=== PATIENT | female | born 1950 | race Caucasian/White ===

== ENCOUNTER 2019-03-18 08:44 | Inpatient (IN) ==
[2019-03-18] MEDS ORDERED: 0.9 % Sodium Chloride 1,000 ML IVC ONE (08:56)
[2019-03-18] MEDS ORDERED: Ondansetron 4 MG/2 ML VIAL IVP ONE (08:56)
[2019-03-18 09:37] LABS: Albumin 3.6 g/dL (3.5-5.7); Bilirubin,Total 1.1 mg/dL (0.3-1.0); Calcium 9.2 mg/dL (8.6-10.3); Globulin 3.5 g/dL (2.4-3.5); Potassium 3.6 mEq/L (3.5-5.1); Total Protein 7.1 g/dL (6.4-8.9)
[2019-03-18 09:50] LABS: Basophils % 0.1 %; Eosinophils % 0.1 %; Hemoglobin 11.8 g/dL (11.5-15.4); Immature Granulocytes % 0.7 % (0-4); Lymphocytes # 0.2 K/mcL (0.6-4.6); Lymphocytes % 1.4 %; Mean Corpuscular HGB Conc 32.8 g/dL (31.6-35.5); Mean Corpuscular Volume 97.6 fL (83.0-100.0); Mean Platelet Volume 9.9 fL (9.4-12.4); Monocytes # 0.3 K/mcL (0.0-1.3); Monocytes % 2.8 %; Platelet Count 185 K/mcL (140-400); Red Blood Count 3.69 M/mcL (3.82-4.97); Red Cell Distribution Width 14.3 % (11.5-14.5); Segmented Neutrophils % 94.9 %; White Blood Count 11.6 K/mcL (4.3-11.1)
[2019-03-18] MEDS ORDERED: 0.9 % Sodium Chloride 1,000 ML IVC SCH ×2 (10:30→11:11)
[2019-03-18 10:40] LABS: Bilirubin,Urine Negative (Negative); Blood,Urine Negative (Negative); Clarity,Urine Clear (Clear); Color,Urine Yellow (Yellow); Glucose,Urine (UA) Normal (Normal); Ketones,Urine Negative (Negative); Leukocyte Esterase,Urine Negative (Negative); Nitrite,Urine Negative (Negative); PH,Urine 6.5 pH Units (5.0-8.0); Protein,Urine Negative (Neg-Trace); Specific Gravity,Urine 1.025 (1.010-1.025); Urobilinogen,Urine Normal (Normal)
[2019-03-18] MEDS ORDERED: Ondansetron 4 MG/2 ML VIAL IVP PRN (11:11)
[2019-03-18] MEDS ORDERED: Naloxone 0.4 MG/ML INJ IVP PRN (11:11)
[2019-03-18] MEDS ORDERED: Ondansetron ODT 4 MG TAB.RAPDIS SL PRN (11:11)
[2019-03-18] MEDS: 0.45 % Sodium Chloride w/KCl 20 MEQ/1,000 ML MLS IVC SCH (19:56)
[2019-03-18] MEDS: PRESERVISION PO SCH (20:02)
[2019-03-19] MEDS: Acetaminophen 325 MG TABLET PO PRN ×2 (02:38→18:30)
[2019-03-19 06:35] LABS: Basophils % 0.1 %; Eosinophils # 0.1 K/mcL (0.0-0.6); Eosinophils % 0.9 %; Hematocrit 32.1 % (35.3-44.9); Hemoglobin 10.4 g/dL (11.5-15.4); Immature Granulocytes % 0.4 % (0-4); Lymphocytes # 0.5 K/mcL (0.6-4.6); Lymphocytes % 6.5 %; Mean Corpuscular HGB Conc 32.4 g/dL (31.6-35.5); Mean Corpuscular Hemoglobin 31.9 pg (28.0-33.3); Mean Corpuscular Volume 98.5 fL (83.0-100.0); Mean Platelet Volume 10.5 fL (9.4-12.4); Monocytes # 0.3 K/mcL (0.0-1.3); Monocytes % 4.1 %; Neutrophils # 6.6 K/mcL (1.6-8.9); Platelet Count 161 K/mcL (140-400); Red Blood Count 3.26 M/mcL (3.82-4.97); Red Cell Distribution Width 14.6 % (11.5-14.5); White Blood Count 7.5 K/mcL (4.3-11.1)
[2019-03-19 07:00] LABS: Bilirubin,Total 2.5 mg/dL (0.3-1.0); Calcium 8.2 mg/dL (8.6-10.3); Magnesium 1.7 mg/dL (1.6-2.6); Phosphorous 2.5 mg/dL (2.7-4.5); Potassium 3.7 mEq/L (3.5-5.1)
[2019-03-19] MEDS: 0.45 % Sodium Chloride w/KCl 20 MEQ/1,000 ML MLS IVC SCH ×3 (08:25→19:46)
[2019-03-19] MEDS: Letrozole 2.5 MG TABLET PO SCH (08:25)
[2019-03-19] MEDS: PRESERVISION PO SCH ×2 (08:25→19:47)
[2019-03-19 09:19] LABS: Estimated Average Glucose 137 mg/dl
[2019-03-19 18:23] LABS: Hepatitis B Surface Antigen Nonreactive (Nonreactive)
[2019-03-19 18:53] LABS: Hepatitis A Antibody IgM Nonreactive (Nonreactive); Hepatitis B Core IgM Nonreactive (Nonreactive)
[2019-03-19 18:54] LABS: Hepatitis C Virus Antibody Nonreactive (Nonreactive)
[2019-03-20] MEDS ORDERED: *HR* Enoxaparin 40 MG/0.4 ML SYRINGE SQ SCH (06:00)
[2019-03-20 07:07] LABS: Basophils % 0.4 %; Eosinophils # 0.4 K/mcL (0.0-0.6); Eosinophils % 8.2 %; Hematocrit 33.6 % (35.3-44.9); Hemoglobin 10.6 g/dL (11.5-15.4); Immature Granulocytes % 0.6 % (0-4); Lymphocytes # 0.7 K/mcL (0.6-4.6); Lymphocytes % 14.1 %; Mean Corpuscular HGB Conc 31.5 g/dL (31.6-35.5); Mean Corpuscular Hemoglobin 31.5 pg (28.0-33.3); Mean Platelet Volume 10.8 fL (9.4-12.4); Monocytes # 0.4 K/mcL (0.0-1.3); Monocytes % 8.6 %; Neutrophils # 3.3 K/mcL (1.6-8.9); Platelet Count 159 K/mcL (140-400); Red Blood Count 3.36 M/mcL (3.82-4.97); Red Cell Distribution Width 14.7 % (11.5-14.5); Segmented Neutrophils % 68.1 %; White Blood Count 4.9 K/mcL (4.3-11.1)
[2019-03-20 07:34] LABS: Alanine Aminotransferase 158 Units/L (7-52); Alkaline Phosphatase 154 Units/L (34-104); Aspartate Amino Transferase 159 Units/L (13-39); BUN/Creatinine Ratio 10 (6-26); Bilirubin,Total 2.5 mg/dL (0.3-1.0); Blood Urea Nitrogen 9 mg/dL (8-23); Calcium 8.3 mg/dL (8.6-10.3); Carbon Dioxide 25 mEq/L (23-29); Chloride 108 mEq/L (98-107); Globulin 3.1 g/dL (2.4-3.5); Glucose 110 mg/dL (70-105); Osmolality,Calculated 287 (280-300); Sodium 139 mEq/L (136-145); Total Protein 6.1 g/dL (6.4-8.9); eGFR For African Americans > 60 (> 60); eGFR For Non-African Americans > 60 (> 60)
[2019-03-20 08:43] LABS: % Iron Saturation 21 % (15-50); Iron 50 mcg/dL (50-170); Transferrin 172 mg/dL (203-362)
[2019-03-20 08:51] LABS: Procalcitonin 2.7 ng/mL (0.00-0.15)
[2019-03-20 09:02] LABS: Ferritin 696 ng/mL (10-120)
[2019-03-20] MEDS: Letrozole 2.5 MG TABLET PO SCH (09:26)
[2019-03-20] MEDS: PRESERVISION PO SCH (09:26)
[2019-03-20] MEDS: 0.45 % Sodium Chloride w/KCl 20 MEQ/1,000 ML MLS IVC SCH (09:27)
[2019-03-20 10:23] VITALS: BP 112/70
== END 2019-03-20 11:18 | disposition home or self-care (01) | DRG 816 ==
LOC: EMEROOPIK 08:44 → INPPIK 08:44
PROVIDERS: ADMIT Internal Medicine; ATTEND Internal Medicine